=== PATIENT | female | born 1975 | race Caucasian/White ===

== ENCOUNTER 2020-05-02 22:58 | Emergency (ER) | payer BC, OTHER ==
[2020-05-02 23:25] LABS: #Basophils 0.1 thou/uL (0.0-0.2); #Eosinphils 0.2 thou/uL (0.0-0.7); #Monocytes 0.7 thou/uL (0.11-0.59); #Neutrophils 7.4 thou/uL (1.40-6.50); %Basophils 0.7 % (0.0-1.0); %Eosinophils 2.2 % (0.0-10.0); %Lymphocytes 18.8 % (21.0-51.0); %Monocytes 6.9 % (0.0-10.0); %Neutrophils 71.3 % (42.0-75.0); Hemoglobin 15.1 g/dL (12.0-16.0); Mean Corpuscular HGB CONC 34.1 g/dL (32.0-36.0); Mean Corpuscular Hemoglobin 30.6 pg (27.0-31.0); Mean Corpuscular Volume 89.5 fL (78.0-98.0); Mean Platelet Volume 6.8 fL (7.4-10.4); Platelet Count 207 thou/uL (130-400); RBC Distribution Width 11.6 % (11.5-14.5); Red Blood Cell (RBC) Count 4.95 mill/uL (4.20-5.40); White Blood Cell (WBC) Count 10.3 thou/uL (4.8-10.8)
[2020-05-02 23:26] LABS: Bilirubin Negative (Negative); Blood, Urine Negative (Negative); Clarity Clear (Clear); Glucose, Urine (Dipstick) Normal (Negative); Ketone, Urine Negative (Negative); Leukocyte Negative Leu/uL (Negative); Nitrite Negative (Negative); Protein, Urine (Dipstick) Negative (Neg-Trace); Specific Gravity, Urine 1.004 (1.002-1.036); Urobilinogen Normal mg/dL (Less than 2); pH, Urine 6.5 (5.0-9.0)
[2020-05-02] MEDS ORDERED: Ketorolac Tromethamine 30 MG/ML VIAL ONE (23:28)
[2020-05-02] MEDS ORDERED: Ondansetron PF 4 MG/2 ML Vial ONE (23:28)
[2020-05-02 23:51] LABS: ALT (SGPT) 45 U/L (8-55); AST (SGOT) 24 U/L (5-34); Albumin 4.5 g/dL (3.5-5.0); Alkaline Phosphatase 74 U/L (40-110); Anion Gap 16 mmol/L (10-20); BUN (Urea Nitrogen) 11 mg/dL (7.0-18.7); Bilirubin, Total 0.6 mg/dL (0.2-1.2); Calc. Creatinine Clearance 0 mL/min (70-130); Calcium 9.3 mg/dL (7.8-10.44); Carbon Dioxide 27 mmol/L (22-29); Chloride 102 mmol/L (98-107); Globulin 3.2 g/dL (2.4-3.5); Glucose 108 mg/dL (70-105); Lipase 25 U/L (8-78); Potassium 3.9 mmol/L (3.5-5.1); Protein, Total 7.7 g/dL (6.0-8.3); Sodium 141 mmol/L (136-145)
[2020-05-02 23:53] LABS: BHCG - Serum Negative (NEGATIVE); Pregs Control Background? CLEAR/WHITE (CLR/WHITE); Pregs Control Bar Appear? YES (CONTROL BAR)
--- NOTE | 2020-05-03 07:36 | ULT ---
PRELIMINARY REPORT/DIRECT RADIOLOGY/EMERGENCY AFTER HOURS PROCEDURE: EXAM: US Abdomen Limited, Right Upper Quadrant. CLINICAL HISTORY: RUQ pain today, nausea TECHNIQUE: Real-time ultrasound of the right upper quadrant with image documentation. COMPARISON: None provided. FINDINGS: LIVER: Measures 16.7 cm and demonstrates fatty infiltration with focal fatty sparing adjacent to the gallbladder. GALLBLADDER: No gallstone. No wall thickening. No pericholecystic fluid. COMMON BILE DUCT: No dilation. Measures 6.3 mm PANCREAS: Unremarkable as visualized. The distal pancreas is obscured by overlying bowel gas. RIGHT KIDNEY: Unremarkable. No hydronephrosis. Measures 10.0 cm IMPRESSION: No acute process in the RIGHT upper quadrant ELECTRONICALLY SIGNED BY: Diallo Jane MD May 03, 2020 12:25:45 AM [facility] FINAL REPORT: RIGHT UPPER QUADRANT ULTRASOUND: DATE: 05/03/2020. COMPARISON: None. HISTORY: Right upper quadrant pain with nausea. FINDINGS: I agree with the preliminary report. The imaged pancreas is unremarkable. The tail of the pancreas is obscured by bowel gas. The hepatic parenchyma is heterogeneous and echogenic, suggesting steatosis.. No gallbladder wall thickening or gallstones. The common bile duct measures 6 mm, upper limits of normal in size. Correlation with LFTs is suggeste d. Right kidney measures 10.1 cm in craniocaudal dimension and demonstrates no stone, hydronephrosis, or mass. The mission coordinator reports a negative Briceno's sign. IMPRESSION: No cholelithiasis or evidence of cholecystitis. Common bile duct is upper limits of normal in size. Significance is uncertain. Correlation with LFTs advised. Transcribed Date/Time: 05/03/2020 9:06 AM
== END 2020-05-03 01:19 | disposition home or self-care (01) ==
LOC: ERS 22:58
DX: R10.11 Right upper quadrant pain (principal); R10.13 Epigastric pain; R11.0 Nausea
CPT/HCPCS: 76705; 80053; 81003; 83690; 84703; 85025; 96374; 96375; J1885; J2405